=== PATIENT | female | born 2005 | race Caucasian/White ===

== ENCOUNTER → 2025-02-20 10:04 | Outpatient (CLI) | payer OTHER, SELFPAY ==
--- NOTE | 2025-02-20 10:11 | DI.MRI.S_ITS ---
PROCEDURE: MR SHOULDER RT W CON INDICATIONS: SHOULDER PAIN TECHNIQUE: After the administration of 12 mL of dilute intra-articular Gadolinium contrast, oblique coronal T1 and T2 spin echo with fat saturation, oblique sagittal T1 spin echo with and without fat saturation, oblique sagittal T2 fast spin echo with fat saturation, axial T1 spin echo with fat saturation through the shoulder. COMPARISON: [facility], , [place] ARTHROGRAM SHOULDER RT, 02/20/2025, 9:31. FINDINGS: Image quality: Excellent. Rotator cuff: The supraspinatus, infraspinatus, and subscapularis tendons appear intact throughout. No rotator cuff muscle atrophy on sagittal images. Bones and bursae: Chronic nonedematous Hill-Sachs lesion is seen at the posterior humeral head measuring approximately 16 x 10 x 3 mm. No significant loss of anterior glenoid bone stock is seen. No focal glenohumeral cartilage defect. Acromioclavicular joint is normally aligned. Small amount of noncommunicating subacromial/subdeltoid bursal fluid is likely related to the arthrogram injection. No intra-articular loose body in the glenohumeral joint. Capsule and soft tissues: Mildly displaced tear of the anterior inferior labrum which appears to have intact periosteal attachment (Perthes lesion). The tear extends into the anterior superior labrum. Proximal biceps long head tendon is intact. Glenohumeral ligaments are intact. IMPRESSION: 1. Findings related to prior anterior instability with a chronic nonedematous Hill-Sachs lesion at the posterior superior humeral head measuring 16 x 10 x 3 mm. 2. Displaced tearing of the anterior inferior labrum to anterior superior labrum with an intact periosteal attachment. No significant loss of anterior glenoid bone stock. Approved by: Don Pal M.D. on 02/20/2025 at 16:23
--- NOTE | 2025-02-20 10:11 | DI.RAD.S_ITS ---
PROCEDURE: [place] ARTHROGRAM SHOULDER RT INDICATIONS: RIGHT SHOULDER PIAN COMPARISON: None. TECHNIQUE: The indications, alternatives, benefits, risks, and complications of the procedure were explained to the patient. Written informed consent was obtained and placed in the chart. The shoulder was examined fluoroscopically and a site for needle placement chosen for entry into the glenohumeral joint from an anterior approach. The skin was prepped and draped in a sterile fashion, and 1% lidocaine infiltrated from skin down to joint capsule. A spinal needle was inserted into the glenohumeral joint, and a small amount of iodinated contrast media injected to confirm intra-articular placement of the needle tip. This was followed by approximately 12 mL dilute solution of a gadolinium containing MR contrast agent. The needle was removed and a dressing was applied. The patient was given postprocedural instructions and sent to the MR suite for MR imaging. FINDINGS: A single fluoroscopic spot image demonstrates intra-articular location of injected iodinated contrast. IMPRESSION: Successful fluoroscopically guided administration of dilute Gadolinium solution into the shoulder joint for MR arthrogram. Approved by: Don Pal M.D. on 02/20/2025 at 19:32
[2025-02-20] MEDS: LIDOCAINE 1% 20 ML INJ (11:07)
[2025-02-20] MEDS: SODIUM CHLORIDE 0.9 % 20 ML VIAL IV (11:07)
== END ==
PROVIDERS: Referring Provider Student in an Organized Health Care Education/Training Program; Visit Provider Student in an Organized Health Care Education/Training Program
DX: M25.311 Other instability, right shoulder (principal); S43.491A Other sprain of right shoulder joint, initial encounter
CPT/HCPCS: 23350; 73040; 73222; A9579; Q9967

== ENCOUNTER → 2025-05-30 07:40 | Outpatient (CLI) | payer OTHER, SELFPAY ==
--- NOTE | 2025-05-30 07:42 | DI.MRI.S_ITS ---
PROCEDURE: MR KNEE RT WO CON INDICATIONS: right knee pain TECHNIQUE: Noncontrast sagittal PD fast spin echo and T2 fast spin echo with fat saturation, sagittal 3-D FLASH with fat saturation; coronal T1 spin echo and PD fast spin echo with fat saturation, and axial PD fast spin echo with fat saturation through the knee. COMPARISON: None. FINDINGS: Image quality: Excellent. Anterior cruciate ligament: Intact. Posterior cruciate ligament: Intact. Medial collateral ligament: Intact. Lateral collateral ligament: Intact. Medial meniscus: Complex tearing of the medial meniscus including a horizontal component of the posterior horn extending to the free edge margin and inner third of the tibial articular surface. It moderately-sized superior displaced meniscal flap component at the meniscal body with truncated free edge margin and meniscal tissue extending into the medial femoral gutter. Lateral meniscus: Intact. Medial and lateral tendons: The semimembranosus tendon insertions appear intact. Visualized portions of the pes anserinus tendons appear normal. The popliteus tendon is intact. Iliotibial band appears normal. Anterior structures: Mild patella stuart. The quadriceps and patellar tendons appear intact. No patellar subluxation. No femoral trochlear dysplasia or ventral trochlear prominence. Trace edema at the superolateral aspect of the infrapatellar fat pad. Bones: Mild edema and cystic changes at the posterior aspect of the central tibial plateau near the posterior root attachment of the medial meniscus may represent chronic traction cystic changes versus intraosseous ganglion or intraosseous extension of a parameniscal cyst. No acute osseous fracture. Medial femorotibial cartilage: Intact. Lateral femorotibial cartilage: Intact. Patellofemoral cartilage: Intact. Soft tissues: Small joint effusion. No significant medial popliteal cyst. A lobular cyst posterior to the intercondylar notch measures approximately 17 x 13 x 21 mm, likely a parameniscal cyst or ganglion cyst. Visualized musculature is normal in bulk. Mild nonspecific prepatellar subcutaneous soft tissue edema. IMPRESSION: 1. Complex tearing of the medial meniscus including a horizontal oblique component at the posterior horn and a superiorly displaced flap component at the meniscal body with meniscal tissue extending into the medial femoral gutter. 2. Lobular cyst measuring up to 21 mm posterior to the intercondylar notch is likely a parameniscal cyst or ganglion cyst. Suspected intraosseous extension of the cyst at the posterior tibial plateau. 3. Mild patella stuart. Mild edema is seen at the superolateral aspect of the infrapatellar fat pad, which can be seen in the setting of lateral femoral condyle-patellar tendon friction syndrome. 4. Cruciate and collateral ligaments are intact. Lateral meniscus is intact. No focal cartilage defect. 5. Small joint effusion. Approved by: Don Pal M.D. on 05/30/2025 at 9:32
== END ==
LOC: MRI 07:41
PROVIDERS: PCP Student in an Organized Health Care Education/Training Program; Referring Provider Student in an Organized Health Care Education/Training Program; Visit Provider Student in an Organized Health Care Education/Training Program
DX: S83.231A Complex tear of medial meniscus, current injury, right knee, initial encounter (principal); M25.461 Effusion, right knee; M25.561 Pain in right knee
CPT/HCPCS: 73721